=== PATIENT | female | born 1935 | race Two or more races ===

== ENCOUNTER 2022-04-03 07:45 | Inpatient (IN) | payer OTHER ==
[~2022-04-03] VITALS: Ht 157.5 cm; Wt 73.9 kg
[2022-04-03] MEDS ORDERED: ZOCOR20 MG PO (09:52)
[2022-04-03] MEDS ORDERED: ADULT LOW DOSE81 M1 PO (09:52)
[2022-04-03] MEDS ORDERED: PAXIL20 MG PO (09:52)
[2022-04-03] MEDS ORDERED: COZAAR100 MG PO (09:52)
[2022-04-03] MEDS ORDERED: CATAFLAN PO (09:53)
[2022-04-07] MEDS ORDERED: OXYBUTYNIN CHLOR5 MG (08:31)
[2022-04-07] MEDS ORDERED: DICLOFENAC POTA50 MG (08:31)
[2022-04-07] MEDS ORDERED: OMEGA-3 ACID ETH1 GM (08:32)
[2022-04-09] MEDS ORDERED: DUI500 PO (17:12)
[2022-04-09] MEDS ORDERED: ELIQUIS2.5 MG PO (17:12)
[2022-04-09] MEDS ORDERED: PERCOCET 5-3251 EACH PO (17:12)
== END 2022-04-09 22:25 | DRG 470 ==
LOC: O/R 04-07 06:16 → SURH 04-07 06:16
PROVIDERS: ADMIT Orthopaedic Surgery; ATTEND Orthopaedic Surgery
PROC: 0MNN4ZZ Release Right Knee Bursa and Ligament, Percutaneous Endoscopic Approach (ICD-10-PCS; 2022-04-07)
PROC: 0QR Lower Bones, Replacement (ICD-10-PCS; 2022-04-07)
PROC: 0SRC0JZ Replacement of Right Knee Joint with Synthetic Substitute, Open Approach (ICD-10-PCS; principal; 2022-04-07 07:00)
DX: M17.11 Unilateral primary osteoarthritis, right knee (principal); M22.11 Recurrent subluxation of patella, right knee; M81.0 Age-related osteoporosis without current pathological fracture; E66.9 Obesity, unspecified; Z20.822 Contact with and (suspected) exposure to COVID-19

== ENCOUNTER 2022-04-13 21:20 | Emergency (ER) | payer OTHER ==
[~2022-04-13] VITALS: Ht 160 cm; Wt 73.9 kg
[~2022-04-13 21:20] MED LIST: ADULT LOW DOSE81 M1 PO; CATAFLAN PO; COZAAR100 MG PO; DICLOFENAC POTA50 MG; DUI500 PO; ELIQUIS2.5 MG PO; OMEGA-3 ACID ETH1 GM; OXYBUTYNIN CHLOR5 MG; PAXIL20 MG PO; PERCOCET 5-3251 EACH PO; ZOCOR20 MG PO
== END 2022-04-14 00:20 | disposition home or self-care (01) ==
LOC: ER 21:20
DX: S01.121A Laceration with foreign body of right eyelid and periocular area, initial encounter (principal); W18.30XA Fall on same level, unspecified, initial encounter; Y93.89 Activity, other specified; Y92.238 Other place in hospital as the place of occurrence of the external cause; I10 Essential (primary) hypertension; M12.561 Traumatic arthropathy, right knee; Z96.651 Presence of right artificial knee joint

== ENCOUNTER 2022-07-28 11:30 | Emergency (ER) | payer OTHER ==
[~2022-07-28] VITALS: Ht 157.5 cm; Wt 68.0 kg
[2022-07-28] MEDS ORDERED: TYLENOL325 MG PO (14:39)
== END 2022-07-28 14:46 | disposition home or self-care (01) ==
LOC: ER 11:30
DX: M25.50 Pain in unspecified joint (principal); G56.00 Carpal tunnel syndrome, unspecified upper limb